=== PATIENT | female | born 1980 | race Caucasian/White ===

== ENCOUNTER 2018-06-13 16:40 | Emergency (ER) | payer BC ==
[~2018-06-13] VITALS: Ht 167.6 cm; Wt 79.1 kg
[2018-06-13 16:59] VITALS: Ht 167.6 cm; Wt 79.1 kg
[2018-06-13] MEDS ORDERED: EFFEXOR XR150 MG PO (17:01)
[2018-06-13] MEDS ORDERED: ATIVAN1 MG PO (17:01)
[2018-06-13 18:02] LABS: BASOPHILS 0.2 % (0-2); EOSINOPHILS 2.3 % (0-7); HEMATOCRIT 37.6 % (36.0-48.0); HEMOGLOBIN 12.9 g/dL (12-16); IMMATURE GRANULOCYTES 0.2 % (0-5); LYMPHOCYTES 25.4 % (15-50); MCHC 34.3 g/dL (31.0-37.0); MCV 96.2 fL (80.0-100.0); MEAN PLATELET VOLUME 9.7 fL (7.4-10.4); MONOCYTES 5.8 % (2-11); NEUTROPHILS 66.1 % (40-80); PLATELET COUNT 197 10x3/uL (130-400); RBC 3.91 10x6/uL (4.00-5.40); RDW 11.6 % (11.5-14.5); WBC 9.7 10x3/uL (4.8-10.8)
[2018-06-13 18:11] LABS: HCG URINE NEGATIVE (NEGATIVE)
[2018-06-13 18:14] LABS: APPEARANCE CLEAR (CLEAR); BILIRUBIN NEGATIVE (NEGATIVE); COLOR YELLOW (YELLOW); EPITHELIAL CELLS 0-5 /hpf (0-5); GLUCOSE NEGATIVE (NEGATIVE); KETONE NEGATIVE (NEGATIVE); NITRITE NEGATIVE (NEGATIVE); PROTEIN NEGATIVE (NEGATIVE); RED CELLS - URINE 0-5 /hpf (0-5); SPECIFIC GRAVITY 1.015 (1.005-1.020); UROBILINOGEN NORMAL (NORMAL); WHITE CELLS - URINE NSEEN /hpf (0-5)
[2018-06-13 18:20] LABS: ALBUMIN 4.1 g/dL (3.4-5.0); ALKALINE PHOSPHATASE 43 U/L (46-116); ALT (SGPT) 15 U/L (10-68); AMYLASE - SERUM 39 U/L (25-115); BILIRUBIN - TOTAL 0.36 mg/dL (0.2-1.3); CALC OSMOLALITY 277 mosm/kg (275-300); CALCIUM 9.9 mg/dL (8.5-10.1); CARBON DIOXIDE 28.2 mmol/L (21.0-32.0); CHLORIDE - SERUM 102 mmol/L (98-107); CREATININE - SERUM 0.7 mg/dL (0.6-1.3); GLUCOSE 110 mg/dL (74-106); LIPASE 167 U/L (73-393); POTASSIUM - SERUM 3.6 mmol/L (3.5-5.1); PROTEIN - SERUM 7.4 g/dL (6.4-8.2); SODIUM 138 mmol/L (136-145); UREA NITROGEN 16 mg/dL (7-18); eGFR NON AFRICAN AMERICAN > 90 mL/min (90-120)
[2018-06-13] MEDS ORDERED: ACETAMINOPHEN500 M1 PO (20:01)
[2018-06-13] MEDS ORDERED: CYCLOBENZAPRINE10 MG PO (20:01)
[2018-06-13] MEDS ORDERED: IBUPROFEN800 MG PO (20:01)
[2018-06-13 20:20] VITALS: BP 132/77
== END 2018-06-13 20:20 | disposition home or self-care (01) ==
LOC: D.ER 16:40
PROVIDERS: Family Medicine
DX: R10.32 Left lower quadrant pain (principal)